=== PATIENT | female | born 1990 | race Asian ===

== ENCOUNTER 2017-12-07 08:48 | Emergency (ER) | payer OTHER ==
[2017-12-07 08:56] VITALS: BP 134/78; PULSE 104; TEMP 97.4; BMI 16.6
--- NOTE | 2017-12-07 10:08 | PDOC ---
History of Present Illness - General Chief Complaint: Rash Stated Complaint: RASH Time Seen by Provider: 12/07/17 08:58 History Source: Patient Exam Limitations: No Limitations - History of Present Illness Initial Comments: 12/07/17 12:22 Patient is a [27-year-old female, denies any significant medical history currently on no medication is a nurse at [employer]. Patient reports 14 days ago was exposed to somebody which shingles developed small erythematous lesions with central vesicles today generalized. Patient reports when she came from [place] at the time she was breast-feeding did not have the varicella vaccination. He is concerned she may have the chickenpox. Patient denies any fever, no cough, no other complaint. Patient of Dr. Mckay awaiting his arrival for evaluation Past Medical History: [Denies]. Allergies: No known allergies Medications: [None] Family History: Non-contributory Social History: Denies smoking, alcohol use, or IVDU Review of Systems GENERAL/CONSTITUTIONAL: [No fever or chills. No weakness. No weight change.] HEAD, EYES, EARS, NOSE AND THROAT: [No change in vision. No ear pain or discharge. No sore throat. Small lesion in mouth] CARDIOVASCULAR: [No chest pain or shortness of breath.] RESPIRATORY: [No cough, wheezing, or hemoptysis.] GASTROINTESTINAL: [No nausea, vomiting, diarrhea or constipation. No rectal bleeding.] GENITOURINARY: [No dysuria, frequency, or change in urination.] MUSCULOSKELETAL: [No joint or muscle swelling or pain. No neck or back pain.] SKIN: [Erythematous small lesions with small central vesicles generalized.] NEUROLOGIC: [No headache, vertigo, loss of consciousness, or loss of sensation.] PSYCHIATRIC: [No depression or anxiety.] ENDOCRINE: [No increased thirst. No abnormal weight change.] HEMATOLOGIC/LYMPHATIC: [No anemia, easy bleeding, or history of blood clots.] ALLERGIC/IMMUNOLOGIC: [No hives or skin allergy. No latex allergy.] Physical Exam: GENERAL: [The patient is awake, alert, and fully oriented, in no acute distress. ] HEAD: [Normal with no signs of trauma.] EYES: [Pupils equal, round and reactive to light, extraocular movements intact, sclera anicteric, conjunctiva clear. There is a small vesicular lesion in mouth , lower lip internal.] ENT: [Ears normal, nares patent, oropharynx clear without exudates. Moist mucous membranes. No uvula deviation] NECK: [Normal range of motion, supple without lymphadenopathy, JVD, or masses.] LUNGS: [Breath sounds equal, clear to auscultation bilaterally. No wheezes, and no crackles.] HEART: [Regular rate and rhythm, normal S1 and S2 without murmur, rub or gallop. ] ABDOMEN: [Soft, nontender, normoactive bowel sounds. No guarding, no rebound. No masses. No bruising or abrasions] MUSCULOSKELETAL: [Normal range of motion, no edema. No clubbing or cyanosis. No cords, erythema, or tenderness. No CVA Tenderness with fist.] NEUROLOGICAL: [Cranial nerves II through XII grossly intact. Normal speech, normal gait.] SKIN: [Warm, Dry, normal turgor, there are small erythematous lesions generalized including one in mouth with small internal vesicle. ] Past History - Past Medical History Allergies/Adverse Reactions: Allergies Allergy/AdvReac Type Severity Reaction Status Date / Time No Known Allergies Allergy Verified 12/07/17 08:56 Home Medications: Ambulatory Orders Doxycycline Hyclate 100 mg PO BID #20 capsule 12/07/17 Doxycycline Hyclate 100 mg PO BID #20 capsule 12/07/17 COPD: No - Suicide/Smoking/Psychosocial Hx Smoking History: Never smoked Hx Alcohol Use: No Drug/Substance Use Hx: No Substance Use Type: None *Physical Exam - Vital Signs Last Vital Signs Temp Pulse Resp BP Pulse Ox 97.4 F L 104 H 20 134/78 100 12/07/17 08:50 12/07/17 08:50 12/07/17 08:50 12/07/17 08:50 12/07/17 08:50 Medical Decision Making - Medical Decision Making 12/07/17 12:25 A/P: Patient here for evaluation of rash according to Dr. Mckay patient with atypical chickenpox. Wants me to treat patient with doxycycline, however for MRSA decreased patient home with supportive care. Increase fluids. If fever Motrin or Tylenol, follow-up in office of primary care doctor. 12/07/17 12:26 *DC/Admit/Observation/Transfer Diagnosis at time of Disposition: Rash - Discharge Dispostion Disposition: HOME Condition at time of disposition: Good Admit: No - Prescriptions Prescriptions: Doxycycline Hyclate 100 mg PO BID #20 capsule Doxycycline Hyclate 100 mg PO BID #20 capsule - Referrals Referrals: Vladislav Mckay MD [Primary Care Provider] - - Patient Instructions Printed Discharge Instructions: DI for Rash Additional Instructions: Al instructions and care as per Dr. Mckay - Post Discharge Activity Forms/Work/School Notes: Back to Work
== END 2017-12-07 10:17 | disposition home or self-care (01) ==
LOC: JERFT 08:48
DX: B01.9 Varicella without complication (principal)
CPT/HCPCS: 99281-25

== ENCOUNTER 2021-04-29 20:55 | Emergency (ER) | payer OTHER ==
[2021-04-29 21:21] VITALS: BP 109/77; PULSE 85; TEMP 98.7; BMI 17.7
[2021-04-29] MEDS ORDERED: FLUORESCEIN NA 1 EA STRIP ONE (22:02)
== END 2021-04-29 22:47 | disposition home or self-care (01) ==
LOC: JER 20:55
DX: S09.90XA Unspecified injury of head, initial encounter (principal)
CPT/HCPCS: 99283-25